=== PATIENT | female | born 1995 | race Caucasian/White ===

== ENCOUNTER → 2021-10-27 | Outpatient (CLI) | payer BC ==
--- NOTE | 2021-10-27 09:51 | RAD ---
EXAM: Abdomen and pelvic sonogram. HISTORY: Right lower quadrant pain. TECHNIQUE: Sonographic imaging of the right lower quadrant and right adnexa was performed. COMPARISON: None. FINDINGS: The appendix is not seen within the right lower quadrant. No mass or fluid collection is se en within the right lower quadrant. The right ovary is normal in size and demonstrate normal blood fl ow. No right adnexal lesion is seen. IMPRESSION: 1. Unremarkable right ovary. 2. Nonvisualization of the appendix. Electronically signed by: Lidya Padilla MD (10/27/2021 9:48 AM) [id number]
== END ==
LOC: US 09:24
PROVIDERS: ATTEND Nurse Practitioner Family
DX: R10.31 Right lower quadrant pain (principal)
CPT/HCPCS: 93976